=== PATIENT | male | born 1990 | race Caucasian/White ===

== ENCOUNTER 2017-07-13 16:58 | Emergency (ER) | payer OTHER ==
[~2017-07-13] VITALS: Ht 175.3 cm; Wt 88.6 kg
[2017-07-13 17:00] VITALS: BP 137/76; PULSE 83; TEMP 97.9
== END 2017-07-13 17:43 | disposition home or self-care (01) ==
LOC: COL.ER 16:58
DX: S61.412A Laceration without foreign body of left hand, initial encounter (principal); W26.8XXA Contact with other sharp object(s), not elsewhere classified, initial encounter; Y92.009 Unspecified place in unspecified non-institutional (private) residence as the place of occurrence of the external cause